=== PATIENT | female | born 1970 | race Caucasian/White ===

== ENCOUNTER → 2017-06-03 | Outpatient (CLI) | payer OTHER ==
--- NOTE | 2017-06-03 17:30 | RADIOLOGY IMAGING REPORT ---
FACILITY: [facility] - [place] PATIENT NAME: Alicja Miles : 1970 MR: [id number] V: [id number] EXAM DATE: ORDERING PHYSICIAN: KIKI LYN TECHNOLOGIST: Location: [facility] [place] Patient: Alicja Miles : 1970 Visit/Account:[id number] Date of Sevice: 06/03/2017 Exam type: SHOULDER MIN 2 VIEWS RIGHT History: Right shoulder pain injury 1.5 years ago Comparison: None. Findings: Three views of the right shoulder reveal no evidence of acute fracture or dislocation. There appear to be subtle cystic changes seen along the superolateral aspect of the right humeral head. There are mild degenerative changes at the right AC joint. IMPRESSION: 1. Mild degenerative changes of the right shoulder and right AC joint as described Report Dictated By: Eli Ellington MD at 06/03/2017 5:26 PM Report E-Signed By: Eli Ellington MD at 06/03/2017 5:27 PM WSN:[email or web address]
== END ==
LOC: RAD 16:41
PROVIDERS: ATTEND Family Medicine
DX: M19.011 Primary osteoarthritis, right shoulder (principal)

== ENCOUNTER → 2017-09-10 | Outpatient (CLI) | payer OTHER ==
--- NOTE | 2017-09-10 14:28 | RADIOLOGY IMAGING REPORT ---
FACILITY: [facility] [place] PATIENT NAME: DAVID HERNÁNDEZ : [id number] MR: [id number] V: [id number] EXAM DATE: [id number] ORDERING PHYSICIAN: KIKI LYN TECHNOLOGIST: Imelda Ryan PROCEDURE:BILATERAL DIGITAL SCREENING MAMMOGRAM WITH CAD ASSISTED INTERPRETATION & 3D TOMOSYNTHESIS COMPARISON:Prior mammograms 10/08/16, 10/04/15, 06/28/14. INDICATIONS:SCREENING FINDINGS: A small amount of fibroglandular tissue is seen throughout the breasts. The parenchymal pattern has remained stable allowing for difference in mammographic technique & patient positioning. There is no evidence of malignant appearing mass, malignant appearing calcifications or other secondary sign of malignancy in either breast. DIAGNOSTIC CATEGORY 1--NEGATIVE. RECOMMENDATIONS: ROUTINE MAMMOGRAM AND CLINICAL EVALUATION. IMPRESSION: BIRADS 1: Negative. No significant abnormality is seen. Dictated by: Eli Ellington M.D. on 09/10/2017 at 10:08 Transcribed by: MARYAM on 09/10/2017 at 10:23 Approved by: Eli Ellington M.D. on 09/10/2017 at 14:26 [facility]
== END ==
LOC: MAMO 00:32
PROVIDERS: ATTEND Family Medicine
DX: Z12.31 Encounter for screening mammogram for malignant neoplasm of breast (principal)
CPT/HCPCS: 77063; 77067

== ENCOUNTER 2018-03-05 22:26 | Emergency (ER) | payer OTHER ==
[2018-03-05] MEDS ORDERED: THYR120T10 PO (22:48)
[2018-03-05] MEDS ORDERED: THYR60TA25 PO (22:48)
[2018-03-05] MEDS ORDERED: METF-452 PO (22:49)
--- NOTE | 2018-03-05 22:49 | ER Report ---
History and Physical Time Seen By MD: 22:49 Hx. of Stated Complaint: left arm pain starting from finger tips up her arm radiating to her neck HPI/ROS CHIEF COMPLAINT: shoulder and arm pain on left HISTORY OF PRESENT ILLNESS: This is a 48 year old female. She has been having severe pain in her left shoulder, ribs and arm today. She has had similar problems on the right side with pinched nerves due to muscle spasm and pain. Now similar on left. Worsening over a few weeks. Had a massage today and tried taking Tramadol without relief. Pain radiates down arm to wrist area. Pain in shoulder blade and ribs as well. Worsens with movement, but also has pain and spasms without movement. No fever or chills. No chest pain. No shortness of breath. No injuries recent to start the pain. Allergies: Coded Allergies: No Known Drug Allergies (Unverified , 03/06/18) Home Meds Active Scripts Diazepam (VALIUM) 5 Mg Tablet, 5 MG PO TID PRN for MUSCLE SPASMS, #15 TAB 0 Refills Prov:GER TROY MD 03/06/18 Prednisone (PREDNISONE) 20 Mg Tablet, 60 MG PO QDAY, #12 TAB 0 Refills Prov:GER TROY MD 03/06/18 Oxycodone Hcl/Acetaminophen (PERCOCET 5-325 MG TABLET) 1 Each Tablet, 1 EACH PO Q4H PRN for PAIN, #12 TAB 0 Refills Prov:GER TROY MD 03/06/18 Reported Medications Amoxicillin 500 Mg Tab (AMOXICILLIN 500 MG TAB) 500 Mg Tablet, 1 TAB PO Q12H, TAB prescription for one more week 03/05/18 Progesterone,Micronized (PROGESTERONE) 100 Mg Capsule, 0 PO, CAPSULE unkown dose 03/05/18 Metformin Hcl (METFORMIN HCL) 1,000 Mg Tablet, 2 TAB PO BID, TAB 03/05/18 Thyroid,Pork (ARMOUR THYROID) 120 Mg Tablet, 120 MG PO one tab 3x week 03/05/18 Thyroid,Pork (ARMOUR THYROID) 60 Mg Tablet, 60 MG PO one tab 5x week 03/05/18 Reviewed Nurses Notes: Yes Hx Substance Use Disorder: No Constitutional Vital Sign - Last 24 Hours 03/05/18 03/05/18 03/05/18 03/05/18 22:30 22:31 22:41 22:56 Temp 97.8 Pulse 88 79 93 Resp 20 B/P (MAP) 137/75 (95) 137/75 Pulse Ox 92 92 94 94 O2 Delivery Room Air Room Air 03/05/18 03/05/18 03/05/18 03/06/18 23:11 23:14 23:30 00:00 Pulse 79 87 77 B/P (MAP) 126/89 (101) 116/89 (98) 133/117 (122) Pulse Ox 93 90 94 O2 Delivery Room Air 03/06/18 03/06/18 03/06/18 00:15 00:30 00:45 Pulse 71 85 77 B/P (MAP) 128/93 (105) Pulse Ox 96 92 95 O2 Delivery Room Air Room Air Physical Exam General Appearance: Alert. In distress due to pain. Non-toxic in appearance. Eyes: Pupils are equal, round. No pallor, injection or icterus. ENT: Mucous membranes are moist. Neck: Supple and non tender. Respiratory: Lungs are clear to auscultation. Cardiovascular: Regular rate and rhythm. No murmurs, gallops or rubs. Normal capillary refill. Gastrointestinal: Abdomen is soft and non tender. Nondistended. Normal active bowel sounds. Neurological: Alert and oriented x3. Normal sensation in extremities. Can move arm, but will cause spasming. Skin: Warm and dry. No rashes. Musculoskeletal: Pain with palpation over the shoulder in the area of trapezius, levator scapulae and around the posterior latera ribs. Full range of motion. No pian with palpation of the neck or back midline. Some pain with palpation in the upper arm. Distal arm without pain. DIFFERENTIAL DIAGNOSIS: After history and physical exam, differential diagnosis was considered for patient with pain, which seems due to muscle spasming. Will get labs, imaging and try a combination of Dilaudid and Norflex for pain relief. Medical Decision Making Data Points Result Diagram: 03/05/18224003/05/182240 Laboratory Hematology Test 03/05/18 22:41 Red Blood Count 5.47 M/uL (4.17-5.56) Mean Corpuscular Volume 84.3 fL (80.0-96.0) Mean Corpuscular Hemoglobin 28.8 pg (26.0-33.0) Mean Corpuscular Hemoglobin Concent 34.2 g/dL (32.0-36.0) Red Cell Distribution Width 14.0 % (11.5-14.5) Mean Platelet Volume 7.4 fL (7.2-11.1) Neutrophils (%) (Auto) 57.6 % (39.4-72.5) Lymphocytes (%) (Auto) 33.2 % (17.6-49.6) Monocytes (%) (Auto) 5.8 % (4.1-12.4) Eosinophils (%) (Auto) 1.4 % (0.4-6.7) Basophils (%) (Auto) 2.0 % (0.3-1.4) Nucleated RBC Relative Count (auto) 0.1 /100WBC Neutrophils # (Auto) 6.3 K/uL (2.0-7.4) Lymphocytes # (Auto) 3.7 K/uL (1.3-3.6) Monocytes # (Auto) 0.6 K/uL (0.3-1.0) Eosinophils # (Auto) 0.2 K/uL (0.0-0.5) Basophils # (Auto) 0.2 K/uL (0.0-0.1) Nucleated RBC Absolute Count (auto) 0.01 K/uL Erythrocyte Sedimentation Rate 5 mm/HOUR (0-20) Sodium Level 137 mmol/L (137-145) Potassium Level 3.8 mmol/L (3.5-5.0) Chloride Level 104 mmol/L (98-107) Carbon Dioxide Level 23 mmol/L (22-31) Blood Urea Nitrogen 18 mg/dl (7-18) Creatinine 0.90 mg/dl (0.52-1.04) Glomerular Filtration Rate Calc > 60.0 Random Glucose 99 mg/dl (75-110) Calcium Level 9.2 mg/dl (8.4-10.2) Total Bilirubin 0.8 mg/dl (0.2-1.3) Aspartate Amino Transf (AST/SGOT) 32 U/L (0-35) Alanine Aminotransferase (ALT/SGPT) 34 U/L (0-56) Alkaline Phosphatase 73 U/L (0-126) C-Reactive Protein 1.7 mg/dl (<1.0) Total Protein 7.1 g/dl (6.3-8.2) Albumin 4.2 g/dl (3.5-5.0) Chemistry Test 03/05/18 22:41 White Blood Count 11.0 k/uL (4.5-11.0) Red Blood Count 5.47 M/uL (4.17-5.56) Hemoglobin 15.8 g/dL (12.0-16.0) Hematocrit 46.1 % (34.0-47.0) Mean Corpuscular Volume 84.3 fL (80.0-96.0) Mean Corpuscular Hemoglobin 28.8 pg (26.0-33.0) Mean Corpuscular Hemoglobin Concent 34.2 g/dL (32.0-36.0) Red Cell Distribution Width 14.0 % (11.5-14.5) Platelet Count 406 K/uL (150-450) Mean Platelet Volume 7.4 fL (7.2-11.1) Neutrophils (%) (Auto) 57.6 % (39.4-72.5) Lymphocytes (%) (Auto) 33.2 % (17.6-49.6) Monocytes (%) (Auto) 5.8 % (4.1-12.4) Eosinophils (%) (Auto) 1.4 % (0.4-6.7) Basophils (%) (Auto) 2.0 % (0.3-1.4) Nucleated RBC Relative Count (auto) 0.1 /100WBC Neutrophils # (Auto) 6.3 K/uL (2.0-7.4) Lymphocytes # (Auto) 3.7 K/uL (1.3-3.6) Monocytes # (Auto) 0.6 K/uL (0.3-1.0) Eosinophils # (Auto) 0.2 K/uL (0.0-0.5) Basophils # (Auto) 0.2 K/uL (0.0-0.1) Nucleated RBC Absolute Count (auto) 0.01 K/uL Erythrocyte Sedimentation Rate 5 mm/HOUR (0-20) Glomerular Filtration Rate Calc > 60.0 Calcium Level 9.2 mg/dl (8.4-10.2) Total Bilirubin 0.8 mg/dl (0.2-1.3) Aspartate Amino Transf (AST/SGOT) 32 U/L (0-35) Alanine Aminotransferase (ALT/SGPT) 34 U/L (0-56) Alkaline Phosphatase 73 U/L (0-126) C-Reactive Protein 1.7 mg/dl (<1.0) Total Protein 7.1 g/dl (6.3-8.2) Albumin 4.2 g/dl (3.5-5.0) EKG/Imaging Imaging Exam type: SHOULDER MIN 3 VIEWS LEFT History: left shoulder/arm pain Comparison: None. Findings: There is no acute fracture or dislocation of left shoulder. Degenerative changes are noted the AC joint with undersurface osteophyte. Left lung apex is unremarkable. Y view is rotated. IMPRESSION: 1. No acute fracture or dislocation of left shoulder. 2. Degenerative changes are noted at the left AC joint. Report Dictated By: Sid Perry MD at 03/06/2018 12:28 AM C-SPINE W/O CONTRAST HISTORY: Left shoulder pain COMPARISON STUDIES: none TECHNIQUE: Axial images were obtained from the skull base through the upper thoracic spine without intravenous contrast. Coronal and sagittal reformatted images were obtained from the axial source data. One of the following dose optimization techniques was utilized in the performance of this exam: Automated exposure control; adjustment of the mA and/ or kV according to the patient's size; or use of an iterative reconstruction technique. Specific details can be referenced in the facility's radiology CT exam operational policy. FINDINGS: Pre-vertebral soft tissues: Negative Alignment: negative Vertebral bodies: Negative Posterior elements: Negative Disc Spaces: Negative Visualized soft tissues anterior neck: Negative Visualized lung / mediastinum: Negative IMPRESSION: 1. No evidence for an acute fracture of the cervical spine. 2. No acute pathology in the cervical spine. Report Dictated By: Sid Perry MD at 03/06/2018 12:32 AM ED Course/Re-evaluation Clinical Indication for ER IV: Hydration, IV Access ED Course Improvement with Dilaudid 1mg IV and Norflex 30mg IV. Imaging and labs negative. Discussed this with the patient. Home treatment with Prednisone 60mg daily for 4 more days, 1st dose given here. Also given Percocet 5/325, and Valium 5mg take home, first doses in the ER as well. Decision to Disposition Date: Mar 06, 2018 Decision to Disposition Time: 01:00 Depart Departure Latest Vital Signs Vital Signs Date Time Temp Pulse Resp B/P (MAP) Pulse Ox O2 Delivery O2 Flow Rate FiO2 03/06/18 00:45 77 95 Room Air 03/06/18 00:30 128/93 (105) 03/05/18 22:31 97.8 20 Impression: Primary Impression: Muscle spasm of left shoulder area Condition: Improved Disposition: HOME OR SELF-CARE Referrals: KIKI LYN DO (PCP) New Scripts Diazepam (VALIUM) 5 Mg Tablet 5 MG PO TID PRN for MUSCLE SPASMS, #15 TAB 0 Refills Prov: GER TROY MD 03/06/18 Prednisone (PREDNISONE) 20 Mg Tablet 60 MG PO QDAY, #12 TAB 0 Refills Prov: GER TROY MD 03/06/18 Oxycodone Hcl/Acetaminophen (PERCOCET 5-325 MG TABLET) 1 Each Tablet 1 EACH PO Q4H PRN for PAIN, #12 TAB 0 Refills Prov: GER TROY MD 03/06/18 Patient Instructions: Muscle Spasm (ED) Additional Instructions: Take Valium 5mg, one every 8 hours as needed for muscle spasm. Take percocet 5/325, one every 4 hours as needed for severe pain. Take Prednisone 20mg tablets, 3 tablets daily for 4 more days. Follow-up with your regular doctor for re-evaluation. Consider physical therapy. Consider consultation with occupational therapy to look at alterations of positioning for work/school. GER TROY MD Mar 05, 2018 22:49
[2018-03-05] MEDS ORDERED: AMOX500T10 PO (22:51)
[2018-03-05] MEDS ORDERED: PROG100C PO (22:51)
[2018-03-05] MEDS ORDERED: HYDROMORPHONE HCL 1 MG/ML SYRINGE IVP ONE (23:00)
[2018-03-05] MEDS ORDERED: ORPHENADRINE 60MG/2ML INJ IVP ONE (23:00)
[2018-03-05 23:09] LABS: PLATELET COUNT, AUTOMATED 406 K/uL (150-450)
[2018-03-06 00:30] VITALS: BP 128/93
--- NOTE | 2018-03-06 00:34 | RADIOLOGY IMAGING REPORT ---
FACILITY: [facility] PATIENT NAME: Alicja Miles : 1970 MR: [id number] V: [id number] EXAM DATE: ORDERING PHYSICIAN: GER TROY TECHNOLOGIST: Location: [facility] Patient: Alicja Miles : 1970 Visit/Account:[id number] Date of Sevice: 03/05/2018 Exam type: SHOULDER MIN 3 VIEWS LEFT History: left shoulder/arm pain Comparison: None. Findings: There is no acute fracture or dislocation of left shoulder. Degenerative changes are noted the AC calin nt with undersurface osteophyte. Left lung apex is unremarkable. Y view is rotated. IMPRESSION: 1. No acute fracture or dislocation of left shoulder. 2. Degenerative changes are noted at the left AC joint. Report Dictated By: Sid Perry MD at 03/06/2018 12:28 AM Report E-Signed By: Sid Perry MD at 03/06/2018 12:29 AM WSN:[id number]
--- NOTE | 2018-03-06 00:41 | RADIOLOGY IMAGING REPORT ---
FACILITY: [facility] PATIENT NAME: Alicja Miles : 1970 MR: [id number] V: [id number] EXAM DATE: ORDERING PHYSICIAN: GER TROY TECHNOLOGIST: Location: [facility] Patient: Alicja Miles : 1970 Visit/Account:[id number] Date of Sevice: 03/05/2018 C-SPINE W/O CONTRAST HISTORY: Left shoulder pain COMPARISON STUDIES: none TECHNIQUE: Axial images were obtained from the skull base through the upper thoracic spine without i ntravenous contrast. Coronal and sagittal reformatted images were obtained from the axial source data . One of the following dose optimization techniques was utilized in the performance of this exam: Autom ated exposure control; adjustment of the mA and/or kV according to the patient's size; or use of an i terative reconstruction technique. Specific details can be referenced in the facility's radiology C T exam operational policy. FINDINGS: Pre-vertebral soft tissues: Negative Alignment: negative Vertebral bodies: Negative Posterior elements: Negative Disc Spaces: Negative Visualized soft tissues anterior neck: Negative Visualized lung / mediastinum: Negative IMPRESSION: 1. No evidence for an acute fracture of the cervical spine. 2. No acute pathology in the cervical spine. Report Dictated By: Sid Perry MD at 03/06/2018 12:32 AM Report E-Signed By: Sid Perry MD at 03/06/2018 12:36 AM WSN:[email or web address]
[2018-03-06] MEDS ORDERED: DIAZEPAM 10 MG TAB PO ONE (01:00)
[2018-03-06] MEDS ORDERED: predniSONE 20 MG TAB PO ONE (01:00)
[2018-03-06] MEDS ORDERED: oxyCODONE/ACETAMIN 5/325MG TH 2 TAB/BOTTLE PO ONE (01:00)
[2018-03-06] MEDS ORDERED: DIAZEPAM 5 MG TAB TH 2 TAB/BOTTLE PO ONE (01:00)
[2018-03-06] MEDS ORDERED: PRED20TA6 PO (01:02)
[2018-03-06] MEDS ORDERED: OXYC-865 PO (01:02)
[2018-03-06] MEDS ORDERED: DIA5 PO (01:02)
== END 2018-03-06 01:18 | disposition home or self-care (01) ==
LOC: ER 22:41
DX: M62.838 Other muscle spasm (principal)
CPT/HCPCS: 72125; 73030; 85025; 85651; 86140; 96374; 96375; 99284; J1170; J2360; J7512; 82040; 82247; 82310; 82374; 82435; 82565; 82947; 84075; 84132; 84155; 84295; 84450; 84460; 84520

== ENCOUNTER → 2018-03-12 | Outpatient (CLI) | payer OTHER ==
[~2018-03-12] MED LIST: AMOX500T10 PO; DIA5 PO; METF-452 PO; OXYC-865 PO; PRED20TA6 PO; PROG100C PO; THYR120T10 PO; THYR60TA25 PO
--- NOTE | 2018-03-12 11:10 | RADIOLOGY IMAGING REPORT ---
FACILITY: [facility] - [place] PATIENT NAME: Alicja Miles : 1970 MR: [id number] V: [id number] EXAM DATE: ORDERING PHYSICIAN: KIKI LYN TECHNOLOGIST: Location: [facility] [place] Patient: Alicja Miles : 1970 Visit/Account:[id number] Date of Sevice: 03/12/2018 EXAMINATION: Orbit radiograph single view HISTORY: Pre-MRI screening. Left shoulder pain. COMPARISON: None. FINDINGS: Single view of the orbits is obtained. No radiopaque or metallic foreign bodies of either orbit. Visualized bony structures are intact. IMPRESSION: Orbits are cleared for MRI. Report Dictated By: Mary Jane Londono MD at 03/12/2018 11:04 AM Report E-Signed By: Mary Jane Londono MD at 03/12/2018 11:04 AM WSN:[email or web address]
--- NOTE | 2018-03-12 13:17 | RADIOLOGY IMAGING REPORT ---
FACILITY: [facility] [place] PATIENT NAME: Alicja Miles : 1970 MR: [id number] V: [id number] EXAM DATE: ORDERING PHYSICIAN: KIKI LYN TECHNOLOGIST: Location: [facility] Patient: Alicja Miles : 1970 Visit/Account:[id number] Date of Sevice: 03/12/2018 MRI left shoulder Indication: Left shoulder pain. No known injury. Comparison: None available. Technique: Multiplanar multisequence MR images were obtained through the left shoulder. Findings: Rotator cuff: Mild intrasubstance tearing distal supraspinatus and minimal bursal surface fraying distal posterior supraspinatus fibers. Infraspinatus tendon demonstrates no evidence of significant tendinopathy or tearing. Teres minor is intact, and unremarkable. Subscapularis tendon demonstrates a minimal degree of intermediate intrasubstance signal distally jarod r the insertion, but is intact. Biceps tendon: The intra-articular portion of the tendon is intact and unremarkable. Extra-articular portion of the long head of biceps tendon appears unremarkable within the bicipital g roove. AC joint and acromion: There are mild acromioclavicular degenerative changes undersurface spurring causing mild mass effect upon the supraspinatus. Labrum and capsular ligaments: There is subtle nondisplaced tearing of the superior labrum which extends from the biceps labral anch or to the posterior superior labrum. No para labral cyst formation or labral detachment. Capsular ligaments are intact with no evidence of focal abnormality. Bones and cartilage: No acute fracture or dislocation. No focal chondral defect glenohumeral joint cartilage.. Effusion, bursitis: Minimal amount of fluid seen within the glenohumeral joint. Minimal amount of fluid seen within the subacromial/subdeltoid bursa. IMPRESSION: 1. Mild intrasubstance tearing distal supraspinatus and minimal bursal surface fraying distal posteri or fibers. 2. Mild AC joint degenerative changes. 3. Suggestion of subtle nondisplaced SLAP tear. Report Dictated By: Samson Anderson MD at 03/12/2018 1:09 PM Report E-Signed By: Samson Anderson MD at 03/12/2018 1:12 PM WSN:[email or web address]
== END ==
LOC: MRI 01:32
PROVIDERS: ATTEND Family Medicine
DX: M25.512 Pain in left shoulder (principal)
CPT/HCPCS: 70030

== ENCOUNTER → 2018-10-28 | Outpatient (CLI) | payer OTHER ==
--- NOTE | 2018-10-29 12:05 | RADIOLOGY IMAGING REPORT ---
FACILITY: [facility] [place] PATIENT NAME: DAVID HERNÁNDEZ : [id number] MR: [id number] V: [id number] EXAM DATE: ORDERING PHYSICIAN: KIKI LYN TECHNOLOGIST: Imelda Ryan PROCEDURE: BILATERAL DIGITAL SCREENING MAMMOGRAM WITH CAD ASSISTED INTERPRETATION & 3D TOMOSYNTHESIS. REASON FOR STUDY: Screening. FAMILY HISTORY OF BREAST CANCER: Sister and maternal aunt. BREAST PROCEDURES/TREATMENTS: None. COMPARISON: 09/10/17, 10/08/16, 10/04/15, 06/28/14. VIEWS OBTAINED: Bilateral 2D & 3D full field CC & MLO projections. BREAST DENSITY: There are scattered areas of fibroglandular density throughout the breasts. MAMMOGRAM FINDINGS: The parenchymal pattern has remained stable allowing for difference in mammographic technique & patient positioning. IMPRESSION: BIRADS 1: Negative. DIAGNOSTIC CATEGORY 1--NEGATIVE. RECOMMENDATIONS: ROUTINE MAMMOGRAM AND CLINICAL EVALUATION. Dictated by: Eli Ellington M.D. on 10/28/2018 at 16:19 Transcribed by: MARYAM on 10/29/2018 at 9:51 Approved by: Eli Ellington M.D. on 10/29/2018 at 12:01 [facility]
== END ==
LOC: MAMO 00:59
PROVIDERS: ATTEND Family Medicine
DX: Z12.31 Encounter for screening mammogram for malignant neoplasm of breast (principal)
CPT/HCPCS: 77063; 77067

== ENCOUNTER → 2018-11-09 | Outpatient (CLI) | payer OTHER ==
--- NOTE | 2018-11-09 15:46 | RADIOLOGY IMAGING REPORT ---
[place] [facility] [place]: Alicja Miles : 1970 MR: [id number] V: [id number] EXAM DATE: ORDERING PHYSICIAN: KIKI LYN TECHNOLOGIST: Location: [facility] [place] Patient: Alicja Miles : 1970 Visit/Account:[id number] Date of Sevice: 11/09/2018 PELVIC HISTORY: Irregular menses, fibroids TECHNIQUE: Transvaginal and transabdominal ultrasound pelvis. COMPARISON: December 13, 2015 FINDINGS: Uterus: ; 6.7 cm length x 0.1 cm AP x 5.1 cm transverse. Myometrium: Unremarkable. Endometrium: There is a 4.8 mm hypoechoic mass within the endometrium; double thickness 4.2 mm. Cervix: Grossly negative. Ovaries: Right - 1.4 x 2.3 x 2 cm contains a 1.3 cm cyst Left - 2.5 x 2.6 x 1.3 cm Blood flow is documented in each ovary by duplex Doppler ultrasound. Adnexa: Grossly unremarkable. Free pelvic fluid: None. IMPRESSION: There is a 4.8 mm hypoechoic mass within the endometrium. This may represent an endometrial polyp fi broid or other endometrial mass 1.3 cm right ovarian cyst Report Dictated By: Eli Ellington MD at 11/09/2018 3:07 PM Report E-Signed By: Eli Ellington MD at 11/09/2018 3:38 PM WSN:[email or web address]
== END ==
LOC: US 01:17
PROVIDERS: ATTEND Family Medicine
DX: N83.201 Unspecified ovarian cyst, right side (principal)
CPT/HCPCS: 76856